=== PATIENT | male | born 1960 | race Caucasian/White ===

== ENCOUNTER 2022-09-26 03:02 | Emergency (ER) | payer OTHER ==
[~2022-09-26] VITALS: Ht 182.8 cm; Wt 117.9 kg
[~2022-09-26 03:02] MED LIST: CEPHALEXIN500 M1 PO; NAPROSYN500 MG PO; PERCOCET 325 MG1 TA2 PO
[2022-09-26 03:30] LABS: BASO # 0.1 10*3/uL (0.0-0.1); BASO % 0.7 % (0.0-1.0); EOS # 0.2 10*3/uL (0.0-0.4); EOS % 2.3 % (1.0-4.0); HEMATOCRIT 44.9 % (42.0-52.0); LYMPH % 27.1 % (27.0-41.0); MEAN CELL VOLUME 83.1 fl (80.0-94.0); MEAN CORPUSCULAR HGB 28.7 pg (27.0-31.0); MEAN CORPUSCULAR HGB CONC 34.5 g/dl (33.0-37.0); MEAN PLATELET VOLUME 10.3 fl (9.6-12.3); MONO # 0.7 10*3/uL (0.1-1.0); MONO % 9.5 % (3.0-9.0); NEUT # 4.4 10*3/uL (2.3-7.9); NEUT % 60.1 % (47.0-73.0); PLATELET COUNT AUTOMATED 220 10*3/uL (130-400); RED CELL DISTRI WIDTH 13.5 % (0-14.5); WHITE BLOOD COUNT 7.3 10*3/uL (4.8-10.8)
[2022-09-26 03:41] LABS: ACT PARTIAL THROMBO TIME 28.8 SECONDS (20.0-32.1)
[2022-09-26 03:54] LABS: ALKALINE PHOSPHATASE 67 U/L (46-116); BUN 15 mg/dl (9-23); CHLORIDE 108 mmol/L (98-107); LIPASE 41 U/L (12-53); POTASSIUM 4.3 mmol/L (3.4-5.1); SGPT/ALT 26 U/L (10-49); TOTAL PROTEIN 6.4 gm/dL (6.0-8.0)
== END 2022-09-26 06:52 | disposition home or self-care (01) ==
LOC: ED 03:02
PROVIDERS: Internal Medicine
DX: F41.9 Anxiety disorder, unspecified (principal)

== ENCOUNTER → 2024-11-18 | Outpatient (CLI) | payer OTHER ==
[2024-11-18 11:19] LABS: MEAN CELL VOLUME 83.9 fl (80.0-94.0); MEAN CORPUSCULAR HGB 29.2 pg (27.0-31.0); MEAN PLATELET VOLUME 10.5 fl (9.6-12.3); NUCLEATED RED BLOOD CELL 0.0 % (0.0-0.0); NUCLEATED RED BLOOD CELL 0.0 10*3/uL (0.0-0.0); PLATELET COUNT AUTOMATED 228 10*3/uL (130-400); RED CELL DISTRI WIDTH 13.0 % (0-14.5); RETICULOCYTE % 0.97 % (0.50-2.50)
[2024-11-18 11:31] LABS: BILIRUBIN Negative (Negative); BLOOD Negative (Negative); CLARITY Clear (Clear); COLOR Yellow (Yellow); KETONE Negative (Negative); LEUKO ESTERASE Negative (Negative); NITRITE Negative (Negative); PH 5.5 (4.5-8.0); SPECIFIC GRAVITY 1.020 (1.001-1.030); UROBILINOGEN 0.2 E.U./dl (0.0-1.0)
[2024-11-18 11:40] LABS: BASOPHILS 1 % (0-1)
[2024-11-18 11:42] LABS: PLATELET SUFFICIENCY NORMAL (NORMAL)
[2024-11-18 12:03] LABS: BUN 14 mg/dl (9-23); GAMMA GLUTAMYL TRANSFERASE 14 U/L (0-73); LDL CHOLESTEROL 138 mg/dL (9-159); SGPT/ALT 11 U/L (5-49); T3 UPTAKE 35.3 % (22.4-36.7); THYROXINE (T4) TOTAL 7.0 ug/dl (4.5-10.9)
[2024-11-18 12:06] LABS: BACTERIA TRACE; MUCOUS TRACE; WBC 0-2 wbc/hpf (0-5)
[2024-11-18 12:30] LABS: VITAMIN D, 25-HYDROXY 47.4 ng/mL (30-100)
[2024-11-19 15:07] LABS: ANTI-DSDNA ANTIBODIES 5 IU/mL (0-9)
[2024-11-19 16:08] LABS: A/G RATIO 1.3 (0.7-1.7); BETA GLOBULIN 1.0 g/dL (0.7-1.3); GLOBULIN, TOTAL 2.9 g/dL (2.2-3.9)
== END ==
LOC: LAB 10:48
PROVIDERS: ATTEND Family Medicine
DX: E78.5 Hyperlipidemia, unspecified (principal); E55.9 Vitamin D deficiency, unspecified; R06.02 Shortness of breath; R53.83 Other fatigue; R79.89 Other specified abnormal findings of blood chemistry

== ENCOUNTER → 2024-12-02 | Outpatient (CLI) | payer OTHER ==
[~2024-12-02] MED LIST changes: +GADOTERATE MEGLUMINE 10 MMOL/20 ML VIAL IV ONE; +GADOTERATE MEGLUMINE 5 MMOL/10 ML VIAL IV ONE
== END | disposition home or self-care (01) ==
LOC: MRI 07:30
PROVIDERS: ATTEND Family Medicine
DX: G51.8 Other disorders of facial nerve (principal); R51.9 Headache, unspecified; R20.2 Paresthesia of skin

== ENCOUNTER → 2024-12-11 | Outpatient (CLI) | payer OTHER ==
[~2024-12-11] MED LIST changes: -GADOTERATE MEGLUMINE 10 MMOL/20 ML VIAL IV ONE; -GADOTERATE MEGLUMINE 5 MMOL/10 ML VIAL IV ONE
== END | disposition home or self-care (01) ==
LOC: US 11-27 10:05
PROVIDERS: ATTEND Family Medicine
DX: I77.89 Other specified disorders of arteries and arterioles (principal); G51.8 Other disorders of facial nerve; R20.2 Paresthesia of skin; R51.9 Headache, unspecified